=== PATIENT | male | born 1955 | race African-American/Black ===

== ENCOUNTER 2019-01-18 11:34 | Emergency (ER) | payer MEDICAID ==
[~2019-01-18] VITALS: Ht 180.3 cm; Wt 73.0 kg
[2019-01-18] MEDS ORDERED: IBUPROFEN 600MG TABLET PO ONE (12:30)
[2019-01-18 15:00] VITALS: BP 170/90
== END 2019-01-18 15:25 | disposition home or self-care (01) ==
LOC: ER 11:34
DX: M25.461 Effusion, right knee (principal); I10 Essential (primary) hypertension; F17.200 Nicotine dependence, unspecified, uncomplicated; X50.1XXA Overexertion from prolonged static or awkward postures, initial encounter; Y93.67 Activity, basketball; Y92.89 Other specified places as the place of occurrence of the external cause; Y99.8 Other external cause status
CPT/HCPCS: 73560; 99283; L1830; Z7610